=== PATIENT | female | born 1955 | race Caucasian/White ===

== ENCOUNTER 2017-10-24 06:09 | Emergency (ER) | payer SELFPAY ==
[~2017-10-24] VITALS: Ht 165.1 cm; Wt 74.8 kg
[2017-10-24] MEDS ORDERED: LIDOcaine 1.5% w/epinephrine 1:200,000 5ml ampul IJ ONE (09:00)
[2017-10-24] MEDS ORDERED: AMOX-580 PO (09:02)
[2017-10-24] MEDS ORDERED: ACET-2119 PO (09:02)
[2017-10-24] MEDS ORDERED: amox tr/potassium clavulanate 875/125mg TAB PO ONE (09:05)
[2017-10-24 10:32] VITALS: BP 112/76
[2017-10-24] MEDS ORDERED: HYDROcodone/acetaminophen 10/325mg tab PO ONE (10:35)
== END 2017-10-24 10:40 | disposition home or self-care (01) ==
LOC: ER 06:10
DX: S61.451A Open bite of right hand, initial encounter (principal); Z88.5 Allergy status to narcotic agent; Z88.8 Allergy status to other drugs, medicaments and biological substances; Z79.899 Other long term (current) drug therapy; Z90.710 Acquired absence of both cervix and uterus; W54.0XXA Bitten by dog, initial encounter; Y93.89 Activity, other specified; Y92.89 Other specified places as the place of occurrence of the external cause; Y99.8 Other external cause status
CPT/HCPCS: 12001; 73130; 99284; A6449; J3490

== ENCOUNTER 2022-09-22 15:24 | Emergency (ER) | payer BC, MEDICAID ==
[~2022-09-22] VITALS: Ht 165.1 cm; Wt 80.6 kg
[2022-09-22 15:36] VITALS: BP 130/64
[2022-09-22] MEDS ORDERED: TRAZ-256 PO (16:42)
[2022-09-22] MEDS ORDERED: SIMV-42 PO (16:42)
== END 2022-09-22 16:46 | disposition home or self-care (01) ==
LOC: ER 15:25
DX: Z76.0 Encounter for issue of repeat prescription (principal); F31.9 Bipolar disorder, unspecified; Z90.710 Acquired absence of both cervix and uterus
CPT/HCPCS: 99281